=== PATIENT | female | born 1980 | race African-American/Black ===

== ENCOUNTER 2024-08-27 11:03 | Outpatient (CLI) | payer OTHER, SELFPAY ==
--- NOTE | ~2024-08-27 | US_ITS ---
Pelvic ultrasound. Clinical History: Uterine fibroids Technique: Realtime transabdominal and transvaginal scanning of the pelvis was performed. Color flow Doppler and Doppler spectral analysis were performed. Findings: The uterus is anteverted. The endometrial stripe has a thickness of 6 mm. Exophytic left-s ided fibroid measures 6.4 x 4.8 x 4.3 cm. Anterior wall partially exophytic fibroid measures 4.0 x 3. 3 x 3.9 cm.. The right ovary measures 3.5 x 1.7 x 3.5 cm. No significant right ovarian or adnexal mass is seen. The left ovary measures 2.8 x 1.4 x 2.4 cm. No significant left ovarian or adnexal mass is seen. There is no evidence of free fluid in the cul de sac. Impression: Uterine fibroids, as detailed above. Reviewed, dictated and finalized at location . Impression: Uterine fibroids, as detailed above.
== END 2024-08-27 11:04 | disposition home or self-care (01) ==
LOC: MICIMG 11:04
PROVIDERS: PCP Student in an Organized Health Care Education/Training Program; Visit Provider Student in an Organized Health Care Education/Training Program
DX: D25.9 Leiomyoma of uterus, unspecified (principal)
CPT/HCPCS: 76830; 76856

== ENCOUNTER 2024-12-02 14:30 | Emergency (ER) | payer OTHER, BC, SELFPAY ==
--- NOTE | 2024-12-02 14:31 | ED.URI ---
HPI - URI/Sore Throat General Chief Complaint: Upper Respiratory Infection Stated Complaint: sinus Time Seen by Provider: 12/02/24 14:31 Source: patient Mode of arrival: ambulatory Limitations: no limitations History of Present Illness HPI Narrative: Isabelle is a 44-year-old female patient presenting to the clinic today with complaints of possible sinus infection x1 week. She reports she has had left-sided maxillary sinus pressure and temporal pain for the past week. Has taken Tylenol sinus complete, TheraFlu and Claritin with very minimal relief. She has a productive cough with some yellow phlegm. Denies fevers, chills, body aches. No associated nausea vomiting with her headache. Rates the pain currently a 5/10. Denies at this is the worst headache she has ever had. No dizziness or visual changes. Related Data Allergies Allergy/AdvReac Type Severity Reaction Status Date / Time No Known Allergies Allergy Verified 12/02/24 14:49 Review of Systems Review of Systems: Pertinent positives per HPI. Patient denies any fever, chills, rash, visual changes, dizziness, cough, shortness of breath, chest pain, palpitations, nausea, vomiting, diarrhea, constipation, abdominal pain, or any urinary issues. [facility] Past Medical History Medical History Headache GERD (gastroesophageal reflux disease) Asthma Surgical History Surgical History History of bunionectomy H/O lumpectomy Family History Family History Mother Hypertension Father Hypertension Social History Social History Smoking status: Never smoker Alcohol intake: current Substance use: never Substance use type: does not use Do You Feel Safe in your Home?: Yes Lack of Transportation: No Current Housing: I Have Housing Concerned About Future Housing: No Difficulty Paying Gas/Electric Bills: No Difficulty Paying for Meds: No Currently Unemployed: No Difficulty w/ Childcare or Family Care: No Living arrangements: with family Occupation/Education: occupation Gender identity (if verbalized by the patient): Female Comments At the time of my signature, I reviewed and agree with the nursing past medical, surgical, social, and family history. There is no relevant family history pertinent to the patient complaint. Exam Narrative: General: Well-developed, well nourished, in no apparent distress Head: Normocephalic, atraumatic Eyes: Pupils equally round and reactive to light bilaterally, EOM intact, sclera and conjunctive clear, no discharge, lids normal Ears: TMs intact and congested, ear canals clear, no drainage, grossly hearing normal. Nose: Nares patent, yellow nasal discharge, moderate inflammation, left-sided maxillary sinus tenderness. Mouth: Oral pharynx without lesions or masses, good dentition, MMM. Postnasal drip Neck: Supple, trachea midline, no enlargement of anterior or posterior cervical nodes, no thyroid masses or goiter palpable. Cardio: Regular rate and rhythm, s1 and s2 normal, no murmur appreciated. Resp: Clear to auscultation bilaterally, no rhonchi, rales, wheezing or rubs Musculoskeletal: No deformity, non-tender to palpation, grossly normal range of motion, muscle strength strong and equal, peripheral pulse strong, no edema, no cyanosis, normal gait and station Neuro: Alert and oriented x4 with normal speech, no focal deficits, cranial nerves I through XII intact, muscle strength 5 out of 5, sensation intact bilaterally, negative Romberg test Course Course Emergency Course: Portions of this record may have been created with voice recognition software. Level of Care: Express Care Visit Vital Signs Vital signs: Vital Signs Temperature 36.8 C 12/02/24 14:37 Pulse Rate 62 12/02/24 14:37 Respiratory Rate 18 12/02/24 14:37 Blood Pressure 141/86 H 12/02/24 14:37 Pulse Oximetry 100 12/02/24 14:37 Temperature 36.8 C 12/02/24 14:37 Pulse Rate 62 12/02/24 14:37 Respiratory Rate 18 12/02/24 14:37 Blood Pressure 141/86 H 12/02/24 14:37 Pulse Oximetry 100 12/02/24 14:37 Vital signs reviewed MDM - URI/Sore Throat MDM Narrative Medical decision making narrative: At the time of visit patient is resting comfortably on the exam table. Patient appears to be nontoxic. Complaints of possible sinus infection x1 week. She reports she has had left-sided maxillary sinus pressure and temporal pain for the past week. Has taken Tylenol sinus complete, TheraFlu and Claritin with very minimal relief. She has a productive cough with some yellow phlegm. Denies fevers, chills, body aches. No associated nausea vomiting with her headache. Rates the pain currently a 5/10. Denies at this is the worst headache she has ever had. No dizziness or visual changes. On exam patient has bilateral TMs congested, yellow nasal drainage, moderate inflammation of the anterior turbinates, tenderness to palpation over the maxillary sinuses, postnasal drip, lung sounds are clear, heart rates regular rate rhythm. Plan: I suspect patient has sinusitis/sinus headache. Prescription for Augmentin and prednisone, was sent to the pharmacy Supportive measures were discussed with the patient and they voiced understanding discharge instructions and agrees to treatment plan. Return precautions reviewed Differential Diagnosis Differential diagnosis: Likely upper respiratory infection, otitis media, sinusitis, viral infection, bronchitis, influenza, pharyngitis and other (COVID, sinus headache, temporal itis) Discharge Plan Discharge Clinical Impression: Sinus headache Sinusitis Qualifiers: Sinusitis location: maxillary Chronicity: acute Recurrence: non-recurrent Qualified Code(s): J01.00 - Acute maxillary sinusitis, unspecified Patient Disposition: Home Condition: Stable Instructions: Antibiotic Form, Sinusitis (ED), Acute Headache (ED) Additional Instructions: Take prescription medications only as prescribed-prednisone and Augmentin May take naproxen for headache May take Tylenol additionally as needed for pain Increase fluids and stay well hydrated May use Flonase 1 spray in each nare daily May take OTC antihistamines such as Zyrtec or Claritin daily as directed on bottle May apply Vicks vapor rub to chest to open sinuses Sinus rinses for congestion Cepacol spray, cough drops, throat lozenges, warm tea with honey/lemon, gargle salt water to soothe throat BRAT diet for diarrhea Clear liquids x 24 hours then advance as tolerated for nausea/vomiting Go to the ED if you develop a worsening in your condition- high fever not controlled by Tylenol or Motrin, dehydration, weakness, lethargy, shortness of breath, or chest pain. Follow up with your PCP in 3-5 days if symptoms persist. Patient Language: Guamanian Prescriptions: New amoxicillin-pot clavulanate 875-125 mg tablet 1 tablet PO Q12H 10 Days Qty: 20 0RF prednisone 20 mg tablet 40 mg PO DAILY 5 Days Qty: 10 0RF Follow-up/Referrals: Sreekanth Shoemaker MD [Primary Care Provider, [employer]DR[employer] WORKER] Time of Disposition: 15:05 Quality NIHSS Nursing Documentation ED NIHSS nursing documentation: reviewed/agree
[2024-12-02 14:37] VITALS: BP 141/86; PULSE 62; RESP 18; TEMP 36.8; O2SAT 100
== END 2024-12-02 15:08 | disposition home or self-care (01) ==
PROVIDERS: Emergency Provider Nurse Practitioner Family; PCP Student in an Organized Health Care Education/Training Program
DX: R51.9 Headache, unspecified (principal); J01.00 Acute maxillary sinusitis, unspecified; J45.909 Unspecified asthma, uncomplicated; K21.9 Gastro-esophageal reflux disease without esophagitis
CPT/HCPCS: 99213; G0463

== ENCOUNTER 2025-01-03 09:36 | Outpatient (CLI) | payer BC, OTHER, SELFPAY ==
--- NOTE | ~2025-01-03 | MM_ITS ---
EXAMINATION: MM screening tera BI w juanito HISTORY: Screening TECHNIQUE: Craniocaudal and mediolateral oblique 3-D tomosynthesis images were obtained and synthetic 2-D images were generated. CAD analysis was submitted and interpreted. COMPARISON: No prior mammogram is available for comparison at this institution. BREAST PARENCHYMAL COMPOSITION: Dense: The breasts are extremely dense, which lowers the sensitivity of mammography. FINDINGS: There are benign-appearing bilateral breast calcifications. There is no evidence of suspicious mass, calcification, or architectural distortion to suggest malignancy in either breast. There has been no suspicious interval change. IMPRESSION: 1. No mammographic evidence of malignancy. 2. Recommend routine screening mammography in one year. BI-RADS Category 2: Benign finding(s). Reviewed, dictated and finalized at location O. GUARD
--- OUTSIDE RECORDS SUMMARY | 2025-01-03 09:42 | XMS_ITS | Clinical Summary ---
Author Organization [facility] Address [address] [place] [address] Care Team Providers Care Refueling Ramp Supervisor Name Role Phone Rinku Ryder MD Primary Care Provider Unavailmark e Source Comments [facility],non-owned Affiliates and Associated Physician Practices is amultiple site organization consisting of ambulatory clinics and hospital sitesin [place], [place], [place] and [place]. This disclosure is being madepursuant to the Care Everywhere program and may not contain all information available regarding this patient. 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 Gender Identity Not on file Sexual Orientation Not on file Last Filed Vital Signs Vital Sign Reading Time Taken Comments Blood Pressure 119/80 08/15/2013 5:30 PM CDT Pulse 57 08/15/2013 5:30 PM CDT Temperature 37 C (98.6 F) 08/15/2013 4:02 PM CDT Respiratory Rate 16 08/15/2013 5:30 PM CDT Oxygen Saturation 100% 08/15/2013 5:30 PM CDT Inhaled Oxygen Concentration - - Weight 72.6 kg (160 lb) 08/15/2013 4:02 PM CDT Height 160 cm (5' 3) 08/15/2013 4:02 PM CDT Body Mass Index 28.34 08/15/2013 4:02 PM CDT Plan of Treatment Health Maintenance Due Date Last Done Comments LIPID TESTING 1981 MAMMOGRAM 1981 HIV SCREENING 1996 HEPATITIS C SCREENING 08/12/1999 DTAP/TDAP/TD VACCINES (1 - Tdap) 2000 HEPATITIS B VACCINE (1 of 3 - 19+ 3-dose series) 2000 PAP SMEAR 2002 HPV VACCINE (1 - 3-dose SCDM series) 2008 Cervical Cancer Screening 08/17/2011 PAP with HPV 08/17/2011 DEPRESSION SCREENING 02/14/2024 COVID-19 VACCINE (1 - 2024-2 6 season) 2024 INFLUENZA VACCINE (#1) 2024 ZOSTER VACCINE (1 of 2) 08/17/2031 HIB VACCINE Aged Out No longer eligi ble based on patient's age to complete this topic MENINGOCOCCAL (Group B) VACC INE SHARED DECISION-MAKING Aged Out No longer eligibl e based on patient's age to complete this topic MENINGOCOCCAL GROUPS A/C/Y/W VACCINE Aged Out No longer eligible b ased on patient's age to complete this topic PNEUMOCOCCAL VACCINE Aged Out No long er eligible based on patient's age to complete this topic Insurance [facility] Care Teams Refueling Ramp Supervisor Relationship Specialty Start Date End Date Rinku Ryder MD PCP - General Internal Medicine 12/28/15
--- OUTSIDE RECORDS SUMMARY | 2025-01-03 09:42 | XMS_ITS | Patient Health Record ---
Author Organization [facility] Address [address] [place] [address] Care Team Providers Care Manager Division Name Role Phone CHARLINE POWERS Unavailable [phone] Allergies No Known Allergies Reason For Referral No Information Social History Sex Assigned At : Social History Observation Description Sex Assigned At Female Problems Problem Type SNOMED Code ICD Code Onset Dates Problem Status W/U Status Risk Notes Problem Screening for malignant neoplasm of cervix (procedure) (551854006) Screening for cervical cancer (Z12.4) Active confirmed Plan Of Treatment Pending Test Test Name Order Date *[facility] PANEL 11/05/2020 Insurance Providers Payer Name Payer Address Payer Phone Subscriber Number Group Number Insured Name Patient Relationship to Insured Coverage Start Date Coverage End Date [facility] [address] [place] [phone] [id number] Isabelle Anne Self - patient is the insured 9 Medical (General) History Medical History History ICD Code Asthma: - 10/04/2017; Esophageal Reflux: - 10/04/2017; Fracture or Broken Bone: - 10/04/2017; Mitral Valve Disorders: - 10/04/2017; Ovarian Cyst: - 10/04/2017; CHIEF OPERATING ENGINEER Problems: Fibroids Gastrointestinal (GI) Problems: Irritabl e Bowel Syndrome,Reflux CHIEF OPERATING ENGINEER Problems: Abnormal Periods,Fibroids Surgical History Surgery Date(Month/Year) Other: Lumpectomy - 10/04/2017; Hospitalization History Reason Date(Month/Year)
== END 2025-01-03 09:37 | disposition home or self-care (01) ==
LOC: ANHFOHIMG 09:39
PROVIDERS: Visit Provider Student in an Organized Health Care Education/Training Program
DX: Z12.31 Encounter for screening mammogram for malignant neoplasm of breast (principal)
CPT/HCPCS: 77063; 77067